=== PATIENT | female | born 1995 | race Caucasian/White ===

== ENCOUNTER → 2017-01-03 | Outpatient (REF) | payer BC ==
[~2017-01-03] MED LIST: ADVI200T PO; ARIP1TAB4 PO; Aripiprazole PO; BUPR150T3 PO; BUSP15TA47 PO; COLA100C3 PO; HYDR25T PO; NITR100C2 PO; TRAZO50TA PO; TYLE325T5 PO; VICO5TAB16 PO; WELLTAB38 PO; XANA1TAB2 PO; ZOLO50TA PO; [UNRECOGNIZED DRUG - OTHER]; [UNRECOGNIZED DRUG - OTHER] PO
== END ==
LOC: M LAB REF 16:24
PROVIDERS: ATTEND Physician Assistant Medical
DX: N39.0 Urinary tract infection, site not specified (principal)